=== PATIENT | female | born 1990 | race Two or more races ===

== ENCOUNTER 2016-10-05 09:21 | Emergency (ER) | payer MEDICAID ==
[2016-10-05 09:41] VITALS: BP 112/88; PULSE 72; RESP 16; TEMP 97.9; O2SAT 98
--- NOTE | 2016-10-05 09:45 | EDPHY ---
H & P Time Seen by Provider: 10/05/16 09:44 HPI/ROS: Chief complaint. Eyelid swelling HPI. 25-year-old female with left upper eyelid swelling for 2 days. It is irritating and somewhat watery. In the mornings she has had some yellow drainage. Her vision is okay. She is unsure whether she got anything in her eye as an onset. She is otherwise not sick and no upper respiratory findings. She does have a history of styes to the eyelid. ROS Constitutional. no fever/chills, no weakness Eyes. No problem with vision but swelling to the left upper eyelid ENT. no sore throat, no nasal drainage Cardiovascular. no chest pain Respiratory. no shortness of breath, no cough Abdominal. no abdominal pain, no nausea/vomiting, no diarrhea . no problems urinating MS. no calf pain/swelling, no neck/back pain, no joint pain Skin. no rash Lymph. no swollen glands Neuro. no headache, no dizziness, no difficulty walking or with speech Past Medical/Surgical History: Healthy Social History: Single, nonsmoker, no alcohol Physical Exam: General Appearance: Alert pleasant well-developed female mild distress vital signs are stable Eyes: Pupils equal and round no pallor or injection. Swelling to the left upper eyelid. Eversion of the left upper lid shows apparent stye. ENT, Mouth: Mucous membranes are moist. Respiratory: There are no retractions, lungs are clear to auscultation. Cardiovascular: Regular rate and rhythm. Gastrointestinal: Abdomen is soft and nontender, no masses, bowel sounds normal. Neurological: Awake and alert, sensory and motor exams grossly normal. Skin: Warm and dry, no rashes. Musculoskeletal: Neck is supple nontender. Extremities symmetrical, full range of motion. Psychiatric: Patient is oriented X 3, there is no agitation. Constitutional: Initial Vital Signs Temperature (C) 36.6 C 10/05/16 09:26 Heart Rate 72 10/05/16 09:26 Respiratory Rate 16 10/05/16 09:26 Blood Pressure 112/88 H 10/05/16 09:26 O2 Sat (%) 98 10/05/16 09:26 O2 Delivery Mode Room Air Allergies/Adverse Reactions: ibuprofen Allergy (Severe, Verified 10/05/16 09:41) MOUTH SWELLING Home Medications: Medication Instructions Recorded Norplant 06/06/13 Erythromycin 0.5% 1 wilfrid LEFTEYE QID #1 opht.oint 10/05/16 Medical Decision Making Procedures: Slit-lamp exam shows no findings to the eye but I do see the left upper eyelid swelling consistent with stye ED Course/Re-evaluation: Patient remains stable. She and I discussed diagnosis, treatment plan including criteria for return and importance of follow-up and further evaluation. She expresses understanding and agreement Differential Diagnosis: I considered conjunctivitis, stye, corneal abrasion and foreign body. Departure - Departure Disposition: Home, Routine, Self-Care Clinical Impression: Hordeolum externum left upper eyelid Condition: Good Instructions: Brian (ED) Additional Instructions: Erythromycin ointment using 0.5 inch ribbon to the left eye 4 times daily for the next 4 days. Warm compresses 3-4 times daily for the next 2-3 days. Return for worsening symptoms. Recheck at [place] in 2-3 days if not improving Referrals: DENIS,UNKNOWN [Other] - As per Instructions Stand Alone Forms: Work Excuse Prescriptions: Erythromycin 0.5% 1 wilfrid LEFTEYE QID #1 opht.oint
== END 2016-10-05 10:10 | disposition home or self-care (01) ==
LOC: CED 09:21
DX: H00.014 Hordeolum externum left upper eyelid (principal)